=== PATIENT | male | born 1960 | race Caucasian/White ===

== ENCOUNTER 2016-12-04 09:57 | Emergency (ER) | payer BC ==
[~2016-12-04] VITALS: Ht 188 cm; Wt 167.6 kg
[~2016-12-04 09:57] MED LIST: ASPI325T45 PO; DILT1TAB52 PO; KETO10TA PO; METO1TAB69 PO; PANT40TA PO; ZOLP5TAB PO
[2016-12-04 10:02] VITALS: TEMP 36.7; Ht 188 cm; Wt 167.6 kg
[2016-12-04] MEDS ORDERED: SODIUM CHLORIDE 0.9% 1000ML 1,000 ML IV STA (10:53)
[2016-12-04] MEDS ORDERED: APIX1TAB3 PO (10:55)
--- NOTE | 2016-12-04 11:03 | EMERGENCY ROOM VISIT NOTE ---
History Report prepared by Caity: Raiza Trimble Under the Supervision of: Dr. Madisyn Crowder M.D. First contact with patient: 10:40 Chief Complaint: IRREGULAR HEARTBEAT Stated Complaint: WEAK, DIZZY, HEART, A-FIB History of Present Illness The patient is a 56 year old male who presents to the Emergency Room with complaints of persistent weakness that began three days ago. The patient reports a history of chronic atrial fibrillation. He states that he typically becomes dizzy when his atrial fibrillation worsens, but denies it being as bad today. The patient describes his dizziness as a lightheaded and near syncopal feeling, denying any room spinning sensation. He states that in October he was on a cruise and became sick. The patient reports a decrease in appetite. He denies any recent fall, but reports being on Eliquis. The patient denies any alcohol use this weekend. He denies any fever, vomiting, or diarrhea. Source of History: patient Onset: three days ago Position: other (global) Quality: other (weakness) Timing: other (persistent) Associated Symptoms: No fevers, No vomiting, No diarrhea Note: Associated Symptoms: dizziness, lightheaded, near syncopal Review of Systems See HPI for pertinent positives & negatives. A total of 10 systems reviewed and were otherwise negative. Past Medical & Surgical Medical Problems: (1) Ankle sprain (2) Atrial Fibrillation (3) Calculus Of Kidney (4) Esophageal Reflux (5) Hypertension Nos (6) Obesity, Nos Family History Patient reports no known family medical history. Social History Smoking Status: Never Smoker Marital Status: Housing Status: lives with family Occupation Status: employed Current/Historical Medications Scheduled Apixaban (Eliquis), 5 MG PO BID Diltiazem HCl Coated Beads (Diltiazem HCl ER), 300 MG PO DAILY Metoprolol Succ (Toprol Xl) (Toprol-Xl ), 100 MG PO DAILY Pantoprazole (Protonix), 40 MG PO DAILY Allergies Coded Allergies: No Known Allergies (Verified , 12/04/16) Physical Exam Vital Signs Date Time Temp Pulse Resp B/P (MAP) Pulse Ox O2 Delivery O2 Flow Rate FiO2 12/04/16 13:46 82 20 115/71 94 12/04/16 12:05 Room Air 12/04/16 12:04 85 16 125/74 94 Room Air 12/04/16 11:06 91 103/71 101 103/73 125 98/55 12/04/16 10:44 Room Air 12/04/16 10:22 114 12/04/16 10:02 36.7 78 18 108/76 95 Room Air Physical Exam Vital signs reviewed. General: Obese, generally well-appearing male, in no significant distress. HEENT: No scleral icterus, PERRLA, neck supple. Atraumatic. Cardiovascular: somewhat rapid rate and irregular rhythm, no extra sounds. Pulmonary: Clear to auscultation bilaterally, normal work of breathing. Abdomen: Morbidly obese, soft, nontender, nondistended, positive bowel sounds. Musculoskeletal: Atraumatic, no peripheral edema. Neurologic: Patient awake alert and oriented x 3, full strength in all 4 extremities. Cranial nerves 2 through 12 grossly intact. Skin: Warm, dry, no rash Medical Decision & Procedures ER Provider Diagnostic Interpretation: Radiology results as stated below per my review and radiologist interpretation: HEAD WITHOUT CONTRAST (CT) CT DOSE: 638.84 mGy.cm HISTORY: No status change dizzy, Afib, anticoagulated TECHNIQUE: Multiaxial CT images of the head were performed without the use of intravenous contrast. A dose lowering technique was utilized adhering to the principles of ALARA. Comparison: None. Findings: The paranasal sinuses and mastoid air cells are clear. The calvarium and skull base are intact. The ventricles and sulci are within normal limits. There is no mass, hematoma, midline shift, or acute infarct. Impression: No acute intracranial abnormality. The above report was generated using voice recognition software. It may contain grammatical, syntax or spelling errors. Electronically signed by: Andry Davis M.D. 12/04/2016 11:32 AM Dictated Date/Time: 12/04/2016 11:31 AM CHEST ONE VIEW PORTABLE CLINICAL HISTORY: a fib COMPARISON STUDY: 01/27/2015 FINDINGS: The heart remains enlarged. There is no failure. There is no focal pulmonary consolidation. There are no pleural effusions.[ IMPRESSION: Stable cardiomegaly. No acute findings. Electronically signed by: Darin Bob M.D. 12/04/2016 11:22 AM Dictated Date/Time: 12/04/2016 11:21 AM Laboratory Results 12/04/16 10:37 Red Blood Count 5.28, Mean Corpuscular Volume 93.0, Mean Corpuscular Hemoglobin 32.2, Mean Corpuscular Hemoglobin Concent 34.6, Mean Platelet Volume 11.7, Neutrophils (%) (Auto) 54.3, Lymphocytes (%) (Auto) 29.1, Monocytes (%) (Auto) 12.4, Eosinophils (%) (Auto) 3.3, Basophils (%) (Auto) 0.4, Neutrophils # (Auto ) 2.99, Lymphocytes # (Auto) 1.60, Monocytes # (Auto) 0.68, Eosinophils # (Auto ) 0.18, Basophils # (Auto) 0.02 12/04/16 10:37 Test 12/04/16 10:37 12/04/16 11:04 12/04/16 11:13 White Blood Count 5.50 K/uL (4.8-10.8) Red Blood Count 5.28 M/uL (4.7-6.1) Hemoglobin 17.0 g/dL (14.0-18.0) Hematocrit 49.1 % (42-52) Mean Corpuscular Volume 93.0 fL (80-100) Mean Corpuscular Hemoglobin 32.2 pg (25-34) Mean Corpuscular Hemoglobin Concent 34.6 g/dl (32-36) Platelet Count 195 K/uL (130-400) Mean Platelet Volume 11.7 fL (7.4-10.4) Neutrophils (%) (Auto) 54.3 % Lymphocytes (%) (Auto) 29.1 % Monocytes (%) (Auto) 12.4 % Eosinophils (%) (Auto) 3.3 % Basophils (%) (Auto) 0.4 % Neutrophils # (Auto) 2.99 K/uL (1.4-6.5) Lymphocytes # (Auto) 1.60 K/uL (1.2-3.4) Monocytes # (Auto) 0.68 K/uL (0.11-0.59) Eosinophils # (Auto) 0.18 K/uL (0-0.5) Basophils # (Auto) 0.02 K/uL (0-0.2) RDW Standard Deviation 43.2 fL (36.4-46.3) RDW Coefficient of Variation 12.7 % (11.5-14.5) Immature Granulocyte % (Auto) 0.5 % Immature Granulocyte # (Auto) 0.03 K/uL (0.00-0.02) Prothrombin Time 11.5 SECONDS (9.0-12.0) Prothromb Time International Ratio 1.1 (0.9-1.1) Activated Partial Thromboplast Time 30.8 SECONDS (21.0-31.0) Partial Thromboplastin Ratio 1.2 Anion Gap 7.0 mmol/L (3-11) Est Creatinine Clear Calc Drug Dose 136.6 ml/min Estimated GFR () 99.3 Estimated GFR (Non- 85.7 BUN/Creatinine Ratio 13.3 (10-20) Calcium Level 8.6 mg/dl (8.5-10.1) Magnesium Level 2.0 mg/dl (1.8-2.4) Total Bilirubin 0.8 mg/dl (0.2-1) Direct Bilirubin 0.2 mg/dl (0-0.2) Aspartate Amino Transf (AST/SGOT) 40 U/L (15-37) Alanine Aminotransferase (ALT/SGPT) 37 U/L (12-78) Alkaline Phosphatase 113 U/L (45-117) Total Creatine Kinase 58 U/L (39-308) Creatine Kinase MB 0.6 ng/ml (0.5-3.6) Creatine Kinase MB Ratio 1.0 (0-3.0) Total Protein 6.9 gm/dl (6.4-8.2) Albumin 3.2 gm/dl (3.4-5.0) Thyroid Stimulating Hormone (TSH) 3.640 uIu/ml (0.300-4.500) Bedside Troponin I < 0.030 ng/ml (0-0.045) Urine Color DK YELLOW Urine Appearance CLEAR (CLEAR) Urine pH 6.5 (4.5-7.5) Urine Specific [place] 1.024 (1.000-1.030) Urine Protein 1+ (NEG) Urine Glucose (UA) NEG (NEG) Urine Ketones TRACE (NEG) Urine Occult Blood NEG (NEG) Urine Nitrite NEG (NEG) Urine Bilirubin NEG (NEG) Urine Urobilinogen POS (NEG) Urine Leukocyte Esterase SMALL (NEG) Urine WBC (Auto) 5-10 /hpf (0-5) Urine RBC (Auto) 0-4 /hpf (0-4) Urine Hyaline Casts (Auto) 10-30 /lpf (0-5) Urine Epithelial Cells (Auto) >30 /lpf (0-5) Urine Bacteria (Auto) NEG (NEG) Urine Renal Epithelial Cells 0-5 /lpf (0-5) Urine Pathogenic Casts 0-3 GRANULAR CASTS /lpf (0) Laboratory results per my review. Medications Administered Medications (Trade) Dose Ordered Sig/[place] Route Start Time Stop Time Status Last Admin Dose Admin Sodium Chloride 1,000 ml @ 150 mls/hr Q6H40M STAT IV 12/04/16 10:53 12/04/16 14:20 DC 12/04/16 10:53 150 MLS/HR ECG Indication: weakness Rate (beats per minute): 110 Rhythm: atrial fibrillation Findings: PVC, other (possible previous anterior infarct) ED Course 1051: Past medical records reviewed. The patient was evaluated in room A3. A complete history and physical examination was performed. 1053: Ordered Sodium Chloride 1000 ml @ 150 mls/hr IV. 1303: I reevaluated the patient and he is resting comfortably. I discussed the exam findings with him and I discussed the treatment plan. He verbalized complete understanding and agreement. He is ready to go home. Medical Decision Differential diagnosis: Etiologies such as benign positional vertigo, dehydration, hypovolemia, anemia, tumor, infection, hypoglycemia, electrolyte abnormalities, cardiac sources, intracerebral event, toxicologic, neurologic, as well as others were entertained. This pt was evaluated and appeared to be in no distress. IV access was obtained and lab work was drawn. IVF were initiated. EKG is c/w atrial fib at 110, pt states he is chronically in an a fib. He is orthostatic by exam. Lab work is fairly unrevealing. UA is contaminated with epi cells, but largely unrevealing. Head CT is negative. Pt was reevaluated and feeling improved. He reiterated his illness on his recent trip last week. It is unclear what is causing his symptoms today, may just be volume depleted from recent illness. Pt was d/c to care of his and will return to the ED for worsening of symptoms or any medical concerns. Medication Reconcilliation Current Medication List: was personally reviewed by me Blood Pressure Screening Patient's blood pressure: Normal blood pressure Blood pressure disposition: Did not require urgent referral Impression Primary Impression: Chronic atrial fibrillation Additional Impressions: Generalized weakness Dehydration Scribe Attestation The scribe's documentation has been prepared under my direction and personally reviewed by me in its entirety. I confirm that the note above accurately reflects all work, treatment, procedures, and medical decision making performed by me. Departure Information Dispostion Home / Self-Care Referrals Russell Thao M.D. (PCP) Gama Mendoza M.D. Forms HOME CARE DOCUMENTATION FORM, IMPORTANT VISIT INFORMATION Patient Instructions My [facility] Additional Instructions Diagnosis: Chronic atrial fibrillation, dehydration, weakness Drink plenty of clear fluids. Continue your medications as prescribed. Contact Dr. Mendoza's office with regard to lowering your medication doses. Return to the emergency department for worsening of symptoms or any medical concerns. Problem Qualifiers
[2016-12-04 11:08] LABS: BASO % 0.4 %; BASO ABS # 0.02 K/uL (0-0.2); COMPLETE YES; EOS % 3.3 %; HEMATOCRIT 49.1 % (42-52); IG% 0.5 %; LYMPH % 29.1 %; MEAN CORPUSCULAR HEMOGLOBIN 32.2 pg (25-34); MEAN CORPUSCULAR HGB CONC 34.6 g/dl (32-36); MEAN PLATELET VOLUME 11.7 fL (7.4-10.4); MONO % 12.4 %; NEUT % 54.3 %; PLATELET COUNT 195 K/uL (130-400); RED BLOOD COUNT 5.28 M/uL (4.7-6.1)
[2016-12-04 11:18] LABS: BUN/CREATININE RATIO 13.3 (10-20); CALCIUM 8.6 mg/dl (8.5-10.1); CREATININE 0.97 mg/dl (0.60-1.40); INR 1.1 (0.9-1.1); PARTIAL THROMBOPLASTIN RATIO 1.2; PROTHROMBIN TIME (PATIENT) 11.5 SECONDS (9.0-12.0)
[2016-12-04 11:23] LABS: URINE APPEARANCE CLEAR (CLEAR); URINE COLOR DK YELLOW; URINE EPITHELIAL CELL AUTO >30 /lpf (0-5); URINE NITRITE NEG (NEG); URINE PH 6.5 (4.5-7.5); URINE SPECIFIC GRAVITY 1.024 (1.000-1.030); UROBILINOGEN POS (NEG); ZZUR CULT IF INDIC CLEAN CATCH NO
--- NOTE | 2016-12-04 11:24 | DIAGNOSTIC IMAGING REPORT ---
CHEST ONE VIEW PORTABLE CLINICAL HISTORY: a fib COMPARISON STUDY: 01/27/2015 FINDINGS: The heart remains enlarged. There is no failure. There is no focal pulmonary consolidation. There are no pleural effusions.[ IMPRESSION: Stable cardiomegaly. No acute findings. Electronically signed by: Darin Bob M.D. 12/04/2016 11:22 AM Dictated Date/Time: 12/04/2016 11:21 AM
[2016-12-04 11:29] LABS: THYROID STIMULATING HORMONE 3.64 uIu/ml (0.300-4.500)
--- NOTE | 2016-12-04 11:33 | DIAGNOSTIC IMAGING REPORT ---
HEAD WITHOUT CONTRAST (CT) CT DOSE: 638.84 mGy.cm HISTORY: No status change dizzy, Afib, anticoagulated TECHNIQUE: Multiaxial CT images of the head were performed without the use of intravenous contrast. A dose lowering technique was utilized adhering to the principles of ALARA. Comparison: None. Findings: The paranasal sinuses and mastoid air cells are clear. The calvarium and skull base are intact. The ventricles and sulci are within normal limits. There is no mass, hematoma, midline shift, or acute infarct. Impression: No acute intracranial abnormality. The above report was generated using voice recognition software. It may contain grammatical, syntax or spelling errors. Electronically signed by: Andry Davis M.D. 12/04/2016 11:32 AM Dictated Date/Time: 12/04/2016 11:31 AM
[2016-12-04 11:34] LABS: MANUAL MICROSCOPIC REQUIRED? NO; REVIEW REQ? YES; URINE BILIRUBIN NEG (NEG)
[2016-12-04 11:54] LABS: URINE PATH CASTS 0-3 GRANULAR CASTS /lpf (0)
[2016-12-04 13:46] VITALS: BP 115/71; PULSE 82; O2SAT 94
== END 2016-12-04 13:47 | disposition home or self-care (01) ==
LOC: C.EDB 09:59 → C.EDA 13:47
DX: I48.91 Unspecified atrial fibrillation (principal); R53.1 Weakness; E86.0 Dehydration; K21.9 Gastro-esophageal reflux disease without esophagitis; I10 Essential (primary) hypertension; E66.9 Obesity, unspecified

== ENCOUNTER → 2017-03-15 | Outpatient (CLI) | payer BC ==
[~2017-03-15] MED LIST changes: +APIX1TAB3 PO; -ASPI325T45 PO; -KETO10TA PO; +METO100T44 PO; -METO1TAB69 PO; -ZOLP5TAB PO
[2017-03-15 11:05] LABS: PROSTATE SPECIFIC ANTIGEN 3.78 ng/ml (0.000-4.000); URIC ACID 6.7 mg/dl (2.6-7.2)
--- NOTE | 2017-03-26 12:09 | CODING QUERY MEDICAL NECESSITY ---
SUPPORTING DIAGNOSIS NEEDED A supporting diagnosis is required for the test/procedure performed on this patient in order for us to be reimbursed by the patient's insurance. Please provide a supporting diagnosis for the following test/procedure listed below next to the test name along with your signature. *If there is no additional diagnosis for this patient that would support the following test/procedure please document that below next to the test/procedure. Test(s)/Procedure(s) that require a supporting diagnosis: * PSA DIAGNOSIS: Provider Signature: Date: Thank you Georgina Valentin [employer] Information Management Once completed, please kindly fax back to [phone] For questions please call [phone]
== END | disposition home or self-care (01) ==
LOC: C.LAB 10:00
PROVIDERS: ATTEND Internal Medicine Geriatric Medicine
DX: Z00.00 Encounter for general adult medical examination without abnormal findings (principal); Z87.442 Personal history of urinary calculi; R60.0 Localized edema; M10.9 Gout, unspecified; Z79.01 Long term (current) use of anticoagulants; I48.2 Chronic atrial fibrillation; K76.0 Fatty (change of) liver, not elsewhere classified; Z68.43 Body mass index [BMI] 50.0-59.9, adult

== ENCOUNTER → 2017-04-23 | Outpatient (CLI) | payer OTHER ==
--- NOTE | 2017-04-23 07:56 | DIAGNOSTIC IMAGING REPORT ---
R UPPER EXT JOINT WITHOUT CLINICAL HISTORY: 57 years-old Male presenting with R SHOULDER PAIN,R/O CUFF TEAR, limited range of motion for 2 to 3 years, work demands repetitive motions. TECHNIQUE: Multisequence, multiplanar MR imaging of the right shoulder was performed without the use of intravenous contrast. IV contrast: None. COMPARISON: None. FINDINGS: Localizer images: Unremarkable. No bony edema apart from minimal edema or cystic change associated with the acromioclavicular joint degenerative change. Hypertrophic degenerative change at the AC joint results in mild impingement of the myotendinous junction of the supraspinatus. However, the acromion undersurface is concave. Glenohumeral articular cartilage preserved. Slight blunting of the inferior and posterior glenoid labrum without focal tear, likely degenerative in etiology. Biceps labral complex intact. Long head of the biceps tendon well seated within the intertubercular groove. Short head of the biceps tendon intact. Prominent defect consistent with full-thickness tear of the insertional fibers of the supraspinatus with 11 mm of retraction of proximal fibers. This does not appear to be a complete tear and is limited to mid to posterior insertional fibers. The abnormality extends into a linear fluid signal intensity at the medial aspect of the anterior insertional fibers of the infraspinatus consistent with partial undersurface tear. Teres minor tendon intact. Increased signal intensity and thickening of the subscapularis tendon consistent with tendinosis. The transverse ligament portion of the subscapularis tendon is intact. Normal muscle bulk and muscle signal intensity. No significant joint effusion. IMPRESSION: 1. Full-thickness tear of the mid to posterior aspect of the insertional fibers of the supraspinatus. Both millimeters of retraction of proximal fibers. 2. Partial undersurface tear of the anterior insertional fibers of the infraspinatus. 3. Tendinosis of the subscapularis. 4. Degenerative changes of the acromioclavicular joint with resulting mild impingement of the myotendinous junction of the supraspinatus. Electronically signed by: Noe aRmos M.D. 04/23/2017 7:55 AM Dictated Date/Time: 04/23/2017 7:46 AM
== END | disposition home or self-care (01) ==
PROVIDERS: ATTEND Orthopaedic Surgery
DX: M25.511 Pain in right shoulder (principal); S46.011A Strain of muscle(s) and tendon(s) of the rotator cuff of right shoulder, initial encounter; X58.XXXA Exposure to other specified factors, initial encounter; M75.81 Other shoulder lesions, right shoulder; M19.011 Primary osteoarthritis, right shoulder

== ENCOUNTER 2017-05-11 15:13 | Emergency (ER) | payer OTHER ==
[~2017-05-11] VITALS: Ht 188 cm; Wt 170.8 kg
[2017-05-11 15:16] VITALS: Ht 188 cm; Wt 170.8 kg
[2017-05-11 15:27] VITALS: O2SAT 94
--- NOTE | 2017-05-11 15:36 | EMERGENCY ROOM VISIT NOTE ---
History First contact with patient: 15:24 Chief Complaint: RESPIRATORY PROBLEMS Stated Complaint: LUNGS PAINFUL Nursing Triage Summary: pt ambulated to triage pt reports " I am feeling like my lungs are filling up this started Fri night" pt reports fever 1 day ago with tylenol at 1200 pt reports pain in center of chest when coughing History of Present Illness The patient is a 57 year old male who presents to the Emergency Room with complaints of chest congestion and coughing fits associated with chest/rib discomfort. Symptoms started acutely on Saturday and initially presented as dyspnea. Noted congestion but unable to expectorate with coughing. Coughing fits associated with lightheadedness/dizziness. No post-tussive vomiting, but patient thought he might a couple of times. Patient did have a fever, Tmax 101, but this broke with use of Tylenol. Otherwise denies other URTI symptoms. He otherwise denies fevers/chills, headaches, CP at rest, palpitations, abdominal pain, lower extremity swelling or rashes. He is tolerating diet without nausea or vomiting, ambulating without exacerbating symptoms, no orthopnea or PND and voiding (He does note increased frequency of urination) and stooling appropriately. Review of Systems See HPI for pertinent positives and negatives. A total of ten systems were reviewed and were otherwise negative. Past Medical/Surgical History Medical Problems: (1) Ankle sprain (2) Atrial Fibrillation (3) Calculus Of Kidney (4) Esophageal Reflux (5) Hypertension Nos (6) Obesity, Nos Family History Patient reports no known family medical history. Social History Smoking Status: Never Smoker Marital Status: Housing Status: lives with family Occupation Status: employed Current/Historical Medications Scheduled Amoxicillin (Amoxil), 500 MG PO TID Apixaban (Eliquis), 5 MG PO BID Atenolol (Tenormin), 50 MG PO DAILY Benzonatate (Tessalon Perles), 100 MG PO TID Diltiazem HCl Coated Beads (Diltiazem HCl ER), 300 MG PO DAILY Guaifenesin-Codeine (Guaifenesin/Codeine), 5-10 ML PO HS Pantoprazole (Protonix), 40 MG PO DAILY Aycaewyahzssj-En-As W/ Apap (Tylenol Cold & Flu Severe), 1 TAB PO UD Physical Exam Vital Signs Date Time Temp Pulse Resp B/P (MAP) Pulse Ox O2 Delivery O2 Flow Rate FiO2 05/11/17 20:54 67 18 116/55 96 05/11/17 19:14 36.7 05/11/17 19:01 116/55 05/11/17 18:48 91 93 05/11/17 18:18 97 99 05/11/17 18:03 109/71 05/11/17 18:01 120/84 05/11/17 17:48 92 94 05/11/17 17:31 102/77 05/11/17 17:30 88 20 102/77 94 Room Air 05/11/17 17:28 99/74 05/11/17 17:18 95 92 05/11/17 17:01 96/65 05/11/17 16:48 89 24 92 05/11/17 16:43 83 16 93 05/11/17 16:31 119/84 05/11/17 16:24 102 05/11/17 16:13 93 13 97 05/11/17 16:01 125/70 05/11/17 15:31 111/78 05/11/17 15:27 94 Room Air 05/11/17 15:16 36.9 81 20 102/67 95 Room Air Physical Exam GENERAL: alert, morbidly obese, fatigued appearing, sitting in bed, no acute distress, non-toxic HEAD: Normocephalic, atraumatic. No sinus tenderness. EYES: PERRL, EOMI, normal sclera and conjunctiva\\ OROPHARYNX: No exudate, no erythema. Lips, buccal mucosa, and tongue normal and mucous membranes are tacky NECK: Supple, no nuchal rigidity, no adenopathy, non-tender LUNGS: Normal chest wall mechanics, good air entry. Scattered wheezes, no crackles. HEART: RRR, S1 and S2 normal, no murmurs appreciated CHEST: No reproducible tenderness. ABDOMEN: Soft, non-tender, normo-active bowel sounds, no masses, no rebound or guarding. BACK: Back is symmetrical on inspection, no deformities, no midline tenderness, no CVA tenderness. SKIN: Warm, pink, dry. No erythema, rashes, or bruising. EXTREMITIES: Grossly normal. Moving all 4 limbs. Trace pitting edema. Calves non tender. NEURO: Alert, Ox3. No focal deficits. Normal sensorium, cranial nerves II-XII grossly intact, normal speech. PSYCH: Mood and affect appropriate. Medical Decision & Procedures ER Provider Diagnostic Interpretation: CHEST ONE VIEW PORTABLE CLINICAL HISTORY: Shortness of breath. COMPARISON STUDY: Chest radiograph December 04, 2016. FINDINGS: Lung volumes are normal. There is no pneumothorax or pleural effusion. There is no consolidation or evidence for pulmonary edema. Cardiomediastinal silhouette is unremarkable. The appearance of the chest is unchanged. IMPRESSION: No acute cardiopulmonary findings. Laboratory Results 05/11/17 15:45 Red Blood Count 5.10, Mean Corpuscular Volume 93.1, Mean Corpuscular Hemoglobin 32.2, Mean Corpuscular Hemoglobin Concent 34.5, Mean Platelet Volume 10.8, Neutrophils (%) (Auto) 57.3, Lymphocytes (%) (Auto) 17.6, Monocytes (%) (Auto) 19.5, Eosinophils (%) (Auto) 3.3, Basophils (%) (Auto) 0.6, Neutrophils # (Auto ) 3.12, Lymphocytes # (Auto) 0.96, Monocytes # (Auto) 1.06, Eosinophils # (Auto ) 0.18, Basophils # (Auto) 0.03 05/11/17 15:45 Test 05/11/17 15:32 05/11/17 15:45 05/11/17 18:19 05/11/17 19:22 Influenza Type A Antigen Neg for Influ A (NEG) Influenza Type B Antigen Neg for Influ B (NEG) White Blood Count 5.44 K/uL (4.8-10.8) Red Blood Count 5.10 M/uL (4.7-6.1) Hemoglobin 16.4 g/dL (14.0-18.0) Hematocrit 47.5 % (42-52) Mean Corpuscular Volume 93.1 fL (80-100) Mean Corpuscular Hemoglobin 32.2 pg (25-34) Mean Corpuscular Hemoglobin Concent 34.5 g/dl (32-36) Platelet Count 163 K/uL (130-400) Mean Platelet Volume 10.8 fL (7.4-10.4) Neutrophils (%) (Auto) 57.3 % Lymphocytes (%) (Auto) 17.6 % Monocytes (%) (Auto) 19.5 % Eosinophils (%) (Auto) 3.3 % Basophils (%) (Auto) 0.6 % Neutrophils # (Auto) 3.12 K/uL (1.4-6.5) Lymphocytes # (Auto) 0.96 K/uL (1.2-3.4) Monocytes # (Auto) 1.06 K/uL (0.11-0.59) Eosinophils # (Auto) 0.18 K/uL (0-0.5) Basophils # (Auto) 0.03 K/uL (0-0.2) RDW Standard Deviation 45.5 fL (36.4-46.3) RDW Coefficient of Variation 13.3 % (11.5-14.5) Immature Granulocyte % (Auto) 1.7 % Immature Granulocyte # (Auto) 0.09 K/uL (0.00-0.02) Anion Gap 9.0 mmol/L (3-11) Est Creatinine Clear Calc Drug Dose 129.8 ml/min Estimated GFR () 92.8 Estimated GFR (Non- 80.1 BUN/Creatinine Ratio 11.2 (10-20) Calcium Level 8.1 mg/dl (8.5-10.1) Troponin I < 0.015 ng/ml (0-0.045) Pro-B-Type Natriuretic Peptide 442 pg/ml (0-900) Urine Color DK YELLOW Urine Appearance CLEAR (CLEAR) Urine pH 5.5 (4.5-7.5) Urine Specific [place] 1.034 (1.000-1.030) Urine Protein NEG (NEG) Urine Glucose (UA) NEG (NEG) Urine Ketones TRACE (NEG) Urine Occult Blood NEG (NEG) Urine Nitrite NEG (NEG) Urine Bilirubin NEG (NEG) Urine Urobilinogen POS (NEG) Urine Leukocyte Esterase NEG (NEG) Bedside Lactic Acid Venous 1.72 mmol/L (0.90-1.70) Medications Administered Medications (Trade) Dose Ordered Sig/[place] Route Start Time Stop Time Status Last Admin Dose Admin Albuterol/ Ipratropium (Duoneb) 3 ml Q4R STAT INH 05/11/17 15:50 05/11/17 15:51 DC 05/11/17 16:06 3 ML Guaifenesin (Organidin Nr Tab) 200 mg NOW STAT PO 05/11/17 17:14 05/11/17 17:15 DC 05/11/17 17:30 200 MG Albuterol/ Ipratropium (Duoneb) 3 ml Q4R STAT INH 05/11/17 17:35 05/11/17 17:36 DC 05/11/17 18:16 3 ML Benzonatate (Tessalon Perles Cap) 100 mg NOW ONCE PO 05/11/17 17:45 05/11/17 17:46 DC 05/11/17 18:16 100 MG Albuterol/ Ipratropium (Duoneb) 3 ml NOW STAT INH 05/11/17 19:14 05/11/17 19:15 DC 05/11/17 19:24 3 ML Dexamethasone Sodium Phosphate (Decadron Inj) 10 mg NOW STAT IV 05/11/17 19:16 05/11/17 19:17 DC 05/11/17 19:24 10 MG Amoxicillin (Amoxil Cap) 500 mg NOW STAT PO 05/11/17 20:25 05/11/17 20:26 DC 05/11/17 20:32 500 MG Codeine Phosphate/ Guaifenesin (Robitussin-AC Sugar Free Syrup) 10 ml NOW STAT PO 05/11/17 20:30 05/11/17 20:32 DC 05/11/17 20:53 10 ML Albuterol (Ventolin Hfa Inhaler) 2 puffs NOW ONCE INH 05/11/17 20:45 05/11/17 20:46 DC 05/11/17 20:53 2 PUFFS ECG Per My Interpretation Indication: chest pain, SOB/dyspnea Rate (beats per minute): 87 Rhythm: atrial fibrillation Findings: no acute ischemic change, no ectopy Medical Decision Prior records/ancillary studies reviewed. Triage Nursing notes reviewed. Additional history obtained from the patient. The patient's history was concerning for respiratory difficulties. Differential diagnosis: Etiologies such as infections, reactive airway disease, pneumonia, pneumothorax , COPD, CHF, cardiac ischemia, pulmonary embolism, musculoskeletal, gastrointestinal, as well as others were entertained. Physical examination: Vitals noted: afebrile, BP low end of normal, HR, RR, O2 sats within acceptable ranges As above. ER treatment provided: Duonebs, guaifenesin, benzonatate On reassessment the patient felt better. Diagnostic interpretation by me: The electrocardiogram was negative for acute ischemic or pathologic change. The labs revealed CBC and BMP WNL, negative troponin and BNP WNL. Lactic acid borderline. Imaging studies: Chest x-ray as above. This appears to be consistent with viral upper respiratory infection. By the evaluation outlined above emergent etiologies such as CHF, cardiac ischemia, pulmonary embolism, reactive airway disease, pneumonia, pneumothorax, musculoskeletal, serious bacterial infections, as well as others were deemed relatively unlikely. The patient was informed about the findings as listed above. All questions were answered and he was pleased with the treatment. Return instructions were outlined and the patient was discharged in stable condition. Outpatient prescription management: Continue home medications Referral: The patient was referred back to their primary care physician for follow-up in 2 to 3 days for a recheck of the current condition. Blood Pressure Screening Patient's blood pressure: Low blood pressure Impression Primary Impression: URI (upper respiratory infection) Departure Information Dispostion Home / Self-Care Condition GOOD Prescriptions Guaifenesin-Codeine (GUAIFENESIN/CODEINE) 1 Vanesa Vanesa 5-10 ML PO HS for Cough, #120 ML Prov: Adriana Baez, DO 05/11/17 Benzonatate (Tessalon Perles) 100 Mg Cap 100 MG PO TID for Cough, #30 CAP Prov: Adriana Baez, DO 18 Amoxicillin (AMOXIL) 500 Mg Cap 500 MG PO TID, #21 CAP Prov: Adriana Baez, DO 05/11/17 Referrals Russell Thao M.D. (PCP) Patient Instructions My [facility] Resident Tracking Resident Involvement: Resident Care Provided Care Provided: Adult ED
[2017-05-11] MEDS ORDERED: ALBUT/IPRATROP 3MG/0.5MG NEB 3 ML VIAL INH STA ×3 (15:50→19:14)
--- NOTE | 2017-05-11 15:57 | DIAGNOSTIC IMAGING REPORT ---
CHEST ONE VIEW PORTABLE CLINICAL HISTORY: Shortness of breath. COMPARISON STUDY: Chest radiograph December 04, 2016. FINDINGS: Lung volumes are normal. There is no pneumothorax or pleural effusion. There is no consolidation or evidence for pulmonary edema. Cardiomediastinal silhouette is unremarkable. The appearance of the chest is unchanged. IMPRESSION: No acute cardiopulmonary findings. Electronically signed by: Toy Cook M.D. 05/11/2017 3:56 PM Dictated Date/Time: 05/11/2017 3:55 PM
[2017-05-11 16:01] LABS: BASO % 0.6 %; BASO ABS # 0.03 K/uL (0-0.2); EOS % 3.3 %; EOS ABS # 0.18 K/uL (0-0.5); HEMATOCRIT 47.5 % (42-52); HEMOGLOBIN 16.4 g/dL (14.0-18.0); IG# 0.09 K/uL (0.00-0.02); LYMPH % 17.6 %; LYMPH ABS # 0.96 K/uL (1.2-3.4); MEAN CELL VOLUME 93.1 fL (80-100); MEAN CORPUSCULAR HEMOGLOBIN 32.2 pg (25-34); MEAN CORPUSCULAR HGB CONC 34.5 g/dl (32-36); MEAN PLATELET VOLUME 10.8 fL (7.4-10.4); MONO % 19.5 %; MONO ABS # 1.06 K/uL (0.11-0.59); NEUT % 57.3 %; NEUT ABS # 3.12 K/uL (1.4-6.5); PLATELET COUNT 163 K/uL (130-400); RED CELL DISTRIBUTION WIDTH CV 13.3 % (11.5-14.5); RED CELL DISTRIBUTION WIDTH SD 45.5 fL (36.4-46.3); WHITE BLOOD COUNT 5.44 K/uL (4.8-10.8)
[2017-05-11 16:19] LABS: BLOOD UREA NITROGEN 11 mg/dl (7-18); CALCIUM 8.1 mg/dl (8.5-10.1); CARBON DIOXIDE 23 mmol/L (21-32); CREATININE 1.02 mg/dl (0.60-1.40); GLUCOSE 165 mg/dl (70-99); POTASSIUM 3.8 mmol/L (3.5-5.1); SODIUM 137 mmol/L (136-145)
[2017-05-11 16:28] LABS: INFLUENZA B ANTIGEN Neg for Influ B (NEG)
[2017-05-11] MEDS ORDERED: GUAIFENESIN 200 MG TAB PO STA (17:14)
[2017-05-11] MEDS ORDERED: ATEN50TA PO (17:40)
[2017-05-11] MEDS ORDERED: PHEN-582 PO (17:41)
[2017-05-11] MEDS ORDERED: BENZONATATE 100MG CAP PO ONE (17:45)
--- NOTE | 2017-05-11 17:48 | EMERGENCY ROOM VISIT NOTE ---
History First contact with patient: 15:24 Chief Complaint: RESPIRATORY PROBLEMS Stated Complaint: LUNGS PAINFUL Nursing Triage Summary: pt ambulated to triage pt reports " I am feeling like my lungs are filling up this started Fri night" pt reports fever 1 day ago with tylenol at 1200 pt reports pain in center of chest when coughing History of Present Illness The patient is a 57 year old male who presents to the Emergency Room with complaints of shortness of breath and increased coughing that began yesterday. 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 Patient denies fevers chills, states his had a difficult time coughing up the mucus that he feels in his chest. Patient with prior history of bronchitis and upper respiratory infections, was hospitalized once never intubated. No chronic history of asthma or COPD patient nonsmoker. Patient denies any chest pain, abdominal pain, nausea or vomiting, diarrhea, rhinorrhea, nasal congestion, sore throat. Patient initially evaluated by the resident, please refer to her chart for additional information and details. Review of Systems See HPI for pertinent positives & negatives. A total of 10 systems reviewed and were otherwise negative. Past Medical/Surgical History Medical Problems: (1) Ankle sprain (2) Atrial Fibrillation (3) Calculus Of Kidney (4) Esophageal Reflux (5) Hypertension Nos (6) Obesity, Nos Family History Patient reports no known family medical history. Social History Smoking Status: Never Smoker Marital Status: Housing Status: lives with family Occupation Status: employed Current/Historical Medications Scheduled Amoxicillin (Amoxil), 500 MG PO TID Apixaban (Eliquis), 5 MG PO BID Atenolol (Tenormin), 50 MG PO DAILY Benzonatate (Tessalon Perles), 100 MG PO TID Diltiazem HCl Coated Beads (Diltiazem HCl ER), 300 MG PO DAILY Guaifenesin-Codeine (Guaifenesin/Codeine), 5-10 ML PO HS Pantoprazole (Protonix), 40 MG PO DAILY Ghqxuvwscyvdo-Ob-Fb W/ Apap (Tylenol Cold & Flu Severe), 1 TAB PO UD Physical Exam Vital Signs Date Time Temp Pulse Resp B/P (MAP) Pulse Ox O2 Delivery O2 Flow Rate FiO2 05/11/17 20:54 67 18 116/55 96 05/11/17 19:14 36.7 05/11/17 19:01 116/55 05/11/17 18:48 91 93 05/11/17 18:18 97 99 05/11/17 18:03 109/71 05/11/17 18:01 120/84 05/11/17 17:48 92 94 18 17:31 102/77 05/11/17 17:30 88 20 102/77 94 Room Air 05/11/17 17:28 99/74 05/11/17 17:18 95 92 05/11/17 17:01 96/65 05/11/17 16:48 89 24 92 05/11/17 16:43 83 16 93 05/11/17 16:31 119/84 05/11/17 16:24 102 05/11/17 16:13 93 13 97 05/11/17 16:01 125/70 05/11/17 15:31 111/78 05/11/17 15:27 94 Room Air 05/11/17 15:16 36.9 81 20 102/67 95 Room Air Physical Exam GENERAL: alert, well appearing, well nourished, no distress, non-toxic, obese EYE EXAM: normal conjunctiva, PERRL and EOM's grossly intact OROPHARYNX: no exudate, no erythema, lips, buccal mucosa, and tongue normal and mucous membranes are moist NECK: supple, no nuchal rigidity, no adenopathy, non-tender LUNGS: Normal chest wall mechanics, scattered expiratory wheeze, no rhonchi, no rales HEART: no murmurs, S1 normal and S2 normal ABDOMEN: abdomen soft, non-tender, normo-active bowel sounds, no masses, no rebound or guarding. BACK: Back is symmetrical on inspection and there is no deformity, no midline tenderness, no CVA tenderness. SKIN: no rashes and no bruising UPPER EXTREMITIES: upper extremities are grossly normal. LOWER EXTREMITIES: No pitting edema. NEURO EXAM: Normal sensorium, cranial nerves II-XII [grossly] intact, normal speech, no [gross] weakness of arms, no [gross] weakness of legs. Gross sensation intact. Medical Decision & Procedures Laboratory Results 05/11/17 15:45 Red Blood Count 5.10, Mean Corpuscular Volume 93.1, Mean Corpuscular Hemoglobin 32.2, Mean Corpuscular Hemoglobin Concent 34.5, Mean Platelet Volume 10.8, Neutrophils (%) (Auto) 57.3, Lymphocytes (%) (Auto) 17.6, Monocytes (%) (Auto) 19.5, Eosinophils (%) (Auto) 3.3, Basophils (%) (Auto) 0.6, Neutrophils # (Auto ) 3.12, Lymphocytes # (Auto) 0.96, Monocytes # (Auto) 1.06, Eosinophils # (Auto ) 0.18, Basophils # (Auto) 0.03 05/11/17 15:45 Test 05/11/17 15:32 05/11/17 15:45 05/11/17 18:19 05/11/17 19:22 Influenza Type A Antigen Neg for Influ A (NEG) Influenza Type B Antigen Neg for Influ B (NEG) White Blood Count 5.44 K/uL (4.8-10.8) Red Blood Count 5.10 M/uL (4.7-6.1) Hemoglobin 16.4 g/dL (14.0-18.0) Hematocrit 47.5 % (42-52) Mean Corpuscular Volume 93.1 fL (80-100) Mean Corpuscular Hemoglobin 32.2 pg (25-34) Mean Corpuscular Hemoglobin Concent 34.5 g/dl (32-36) Platelet Count 163 K/uL (130-400) Mean Platelet Volume 10.8 fL (7.4-10.4) Neutrophils (%) (Auto) 57.3 % Lymphocytes (%) (Auto) 17.6 % Monocytes (%) (Auto) 19.5 % Eosinophils (%) (Auto) 3.3 % Basophils (%) (Auto) 0.6 % Neutrophils # (Auto) 3.12 K/uL (1.4-6.5) Lymphocytes # (Auto) 0.96 K/uL (1.2-3.4) Monocytes # (Auto) 1.06 K/uL (0.11-0.59) Eosinophils # (Auto) 0.18 K/uL (0-0.5) Basophils # (Auto) 0.03 K/uL (0-0.2) RDW Standard Deviation 45.5 fL (36.4-46.3) RDW Coefficient of Variation 13.3 % (11.5-14.5) Immature Granulocyte % (Auto) 1.7 % Immature Granulocyte # (Auto) 0.09 K/uL (0.00-0.02) Anion Gap 9.0 mmol/L (3-11) Est Creatinine Clear Calc Drug Dose 129.8 ml/min Estimated GFR () 92.8 Estimated GFR (Non- 80.1 BUN/Creatinine Ratio 11.2 (10-20) Calcium Level 8.1 mg/dl (8.5-10.1) Troponin I < 0.015 ng/ml (0-0.045) Pro-B-Type Natriuretic Peptide 442 pg/ml (0-900) Urine Color DK YELLOW Urine Appearance CLEAR (CLEAR) Urine pH 5.5 (4.5-7.5) Urine Specific [place] 1.034 (1.000-1.030) Urine Protein NEG (NEG) Urine Glucose (UA) NEG (NEG) Urine Ketones TRACE (NEG) Urine Occult Blood NEG (NEG) Urine Nitrite NEG (NEG) Urine Bilirubin NEG (NEG) Urine Urobilinogen POS (NEG) Urine Leukocyte Esterase NEG (NEG) Bedside Lactic Acid Venous 1.72 mmol/L (0.90-1.70) Medications Administered Medications (Trade) Dose Ordered Sig/[place] Route Start Time Stop Time Status Last Admin Dose Admin Albuterol/ Ipratropium (Duoneb) 3 ml Q4R STAT INH 05/11/17 15:50 05/11/17 15:51 DC 05/11/17 16:06 3 ML Guaifenesin (Organidin Nr Tab) 200 mg NOW STAT PO 05/11/17 17:14 05/11/17 17:15 DC 05/11/17 17:30 200 MG Albuterol/ Ipratropium (Duoneb) 3 ml Q4R STAT INH 05/11/17 17:35 05/11/17 17:36 DC 05/11/17 18:16 3 ML Benzonatate (Tessalon Perles Cap) 100 mg NOW ONCE PO 05/11/17 17:45 05/11/17 17:46 DC 05/11/17 18:16 100 MG Albuterol/ Ipratropium (Duoneb) 3 ml NOW STAT INH 05/11/17 19:14 05/11/17 19:15 DC 05/11/17 19:24 3 ML Dexamethasone Sodium Phosphate (Decadron Inj) 10 mg NOW STAT IV 2/17/18 19:16 05/11/17 19:17 DC 05/11/17 19:24 10 MG Amoxicillin (Amoxil Cap) 500 mg NOW STAT PO 05/11/17 20:25 05/11/17 20:26 DC 05/11/17 20:32 500 MG Codeine Phosphate/ Guaifenesin (Robitussin-AC Sugar Free Syrup) 10 ml NOW STAT PO 05/11/17 20:30 05/11/17 20:32 DC 05/11/17 20:53 10 ML Albuterol (Ventolin Hfa Inhaler) 2 puffs NOW ONCE INH 05/11/17 20:45 05/11/17 20:46 DC 05/11/17 20:53 2 PUFFS ED Course 1699: Patient reevaluated bedside, did not notice significant change following breathing treatment. 1914: Patient reevaluated bedside. States this feels slightly improved following additional breathing treatment and cough medications. States has had more productive cough, but is not able to produce any additional sputum. Blood pressure stable, repeat check of temperature bedside 98.1F orally. 2019: Patient now with no further wheezing, states he feels improved. Repeat temp 100F orally. Scuffs at length differential diagnosis, close follow-up with family doctor, and prior episodes of significant upper respiratory infections or bronchitis. Patient concerned regarding progression of symptoms, and states that he typically requires antibiotics in order to prevent worsening symptoms or pneumonia. Discussed with him most likely condition is viral in origin, however given prior history and potential risk factors, using shared medical decision making, discussed use of antibiotics. Patient requested additional cough medication, discussed Tessalon Perles as well as evening cough syrup. Discussed additional imaging with the patient, he stated that he would like to follow-up with his family doctor first and that if his symptoms worsen and he would then be amenable to a CAT scan of the chest. I feel he is less likely to have a blood clot contributing to patient's symptoms given his use of Eliquis for his A. fib. Medical Decision Differential diagnosis: Etiologies such as infections, reactive airway disease, pneumonia, pneumothorax , COPD, CHF, cardiac ischemia, pulmonary embolism, musculoskeletal, gastrointestinal, as well as others were entertained. Patient with no hypoxia at any time here, did have improvement following nebulizer treatments. Discussed close follow-up with family doctor, symptoms watch and return for, use of inhaler at home, additional cough medication, he verbalized understanding. Patient offered additional CAT scan due to persistent an evolving symptoms here, he declined. I do not suspect PE given patient's chronic anticoagulation for atrial fibrillation. Doubt bacteremia/ sepsis, doubt primary cardiac etiology, no evidence of CHF. Questions answered bedside, family member driving patient home, he was comfortable with plan, and intends to follow-up with his family doctor the beginning of the week. Patient given prescription for antibiotic as a precaution. Discussed that majority of up risk for infections and bronchitis diagnoses are typically viral. Patient states that he has always needed antibiotics as symptoms worsen. He was given these as a precaution. Medication Reconcilliation Current Medication List: was personally reviewed by me Blood Pressure Screening Patient's blood pressure: Normal blood pressure Impression Primary Impression: URI (upper respiratory infection) Departure Information Dispostion Home / Self-Care Prescriptions Guaifenesin-Codeine (GUAIFENESIN/CODEINE) 1 Vanesa Vanesa 5-10 ML PO HS for Cough, #120 ML Prov: Adriana Baez, DO 05/11/17 Benzonatate (Tessalon Perles) 100 Mg Cap 100 MG PO TID for Cough, #30 CAP Prov: Adriana Baez, DO 05/11/17 Amoxicillin (AMOXIL) 500 Mg Cap 500 MG PO TID, #21 CAP Prov: Adriana Baez, DO 05/11/17 Referrals Russell Thao M.D. (PCP) Patient Instructions My [facility] Additional Instructions Please follow up with your family doctor. You may use the inhaler and spacer as needed up to every 4 hours for its of coughing/wheezing/trouble breathing. You may use the cough medications as prescribed. Do not take the evening cough syrup but has codeine in it and drive as this may make you dizzy or drowsy. Please take the antibiotic as prescribed and consider using a probiotic while you're on it. The stay well-hydrated and drink plenty of water. If you have any worsening cough, noticed blood in your sputum, develop increased shortness of breath, chest pain or tightness, persistent fevers, vomiting or diarrhea, dizziness, or you've any other new concerns, please return the emergency room. Problem Qualifiers Primary Impression: URI (upper respiratory infection) URI type: unspecified URI Qualified Codes: J06.9 - Acute upper respiratory infection, unspecified
[2017-05-11 19:14] VITALS: TEMP 36.7
[2017-05-11] MEDS ORDERED: DEXAMETHASONE SOD INJ 4 MG/ML VIAL IV STA (19:16)
[2017-05-11] MEDS ORDERED: AMOXICILLIN 250 MG CAP PO STA (20:25)
[2017-05-11] MEDS ORDERED: GUAIFENESIN/CODEINE 100MG/10MG 5ML UDC PO STA (20:30)
[2017-05-11] MEDS ORDERED: GUAI100S6 PO (20:38)
[2017-05-11] MEDS ORDERED: AMOX500C3 PO (20:38)
[2017-05-11] MEDS ORDERED: BENZ100C84 PO (20:38)
[2017-05-11] MEDS ORDERED: ALBUTEROL HFA 8 GM INHALER INH ONE (20:45)
[2017-05-11 20:54] VITALS: BP 116/55; PULSE 67; O2SAT 96
== END 2017-05-11 20:55 | disposition home or self-care (01) ==
LOC: C.EDB 15:15 → C.EDC 20:55
DX: J06.9 Acute upper respiratory infection, unspecified (principal); I48.91 Unspecified atrial fibrillation; K21.9 Gastro-esophageal reflux disease without esophagitis; I10 Essential (primary) hypertension; Z79.01 Long term (current) use of anticoagulants